=== PATIENT | male | born 1970 | race Two or more races ===

== ENCOUNTER 2025-01-30 00:53 | Inpatient (IN) | payer MEDICAID ==
[~2025-01-30] VITALS: Ht 170.2 cm; Wt 90.0 kg
--- NOTE | 2025-01-30 02:35 | Physician Documentation ---
History of Present Illness ~ Chief Complaint: Chest Pain Stated Complaint: CHEST PAIN Time Seen by MD: 02:28 Mode of Arrival: Ambulatory HPI Patient presents to the emergency room for evaluation of chest pain. Patient has history of previous stent placement. While at rest he was [place] truck stop and began having some central chest pain therefore came in to be evaluated. He continues to have some degree of chest discomfort. Medication Reconciliation Allergies: Coded Allergies: No Known Allergies (Unverified , 01/30/25) Review of Systems ROS All review of systems negative except as per HPI Physical Exam Vital Signs: Temperature: 97.8, Source: Oral, Heart Rate: 66, Respiratory Rate: 18, BP: 120/87, Pulse Oximetry: 98, Weight: 90.000 Oxygen Flow Rate: 0 Physical Exam General: Patient is awake, alert, oriented x4 in no acute distress and well appearing.~ Head: Normocephalic and atraumatic. Eyes: Conjunctival normal. EOMI. PERRL. ENT: Mucous membranes moist. Neck: Supple, trachea is midline. Chest: Clear to auscultation bilaterally without rales, rhonchi, or wheezes. There is no accessory muscle use or retractions. Cardiac: RRR without murmurs, gallops, or rubs. Abd: Soft, nondistended, nontender, with normoactive bowel sounds. No guarding, rebound, or rigidity. Progress Results/Orders Results/Orders Orders - ORTIZ QUINONEZ MD Hs Troponin I W Calculations (01/30/25 04:28) Hs Troponin I W Calculations (01/30/25 05:28) Chest,Single View (01/30/25 02:45) Pt Inr (01/30/25 03:50) PTT (01/30/25 03:50) Heparin 25,000 Unit/250ml Bag (Heparin 2 (01/30/25 03:50) Heparin 10,000 Unit/Ml 1ml (Heparin 10,0 (01/30/25 03:50) Cbc/Diff (01/31/25 03:00) Cbc/Diff (02/01/25 03:00) Cbc/Diff (02/02/25 03:00) Cbc/Diff (02/03/25 03:00) Cbc/Diff (02/04/25 03:00) Completed Orders - ORTIZ QUINONEZ MD Cbc/Diff (01/30/25 02:28) MG (01/30/25 02:28) Electrocardiogram (01/30/25 02:28) PBNP (01/30/25 02:28) BMP (01/30/25 02:28) Hs Troponin I W Calculations (01/30/25 02:28) Chest,Single View (01/30/25 02:45) Aspirin 325mg Tablet (Aspirin 325mg Tabl (01/30/25 03:50) Heparin 10,000 Unit/Ml 1ml (Heparin 10,0 (01/30/25 03:50) Vital Signs 01/30/25 01/30/25 01:00 01:17 Temp 97.8 Pulse 66 Resp 18 B/P (MAP) 120/87 Pulse Ox 98 O2 Flow Rate 0 Laboratory Tests Test 01/30/25 02:52 White Blood Count 13.4 H Red Blood Count 4.35 L Hemoglobin 13.4 L Hematocrit 39.8 L Mean Corpuscular Volume 91.6 Mean Corpuscular Hemoglobin 30.9 Mean Corpuscular Hemoglobin Concent 33.7 Red Cell Distribution Width 13.4 Platelet Count 208 Mean Platelet Volume 8.9 Neutrophils (%) (Auto) 78.8 H Lymphocytes (%) (Auto) 14.7 L Monocytes (%) (Auto) 4.9 Eosinophils (%) (Auto) 1.3 Basophils (%) (Auto) 0.3 Neutrophils # (Auto) 10.5 H Lymphocytes # (Auto) 2.0 Monocytes # (Auto) 0.7 Eosinophils # (Auto) 0.2 Basophils # (Auto) 0.0 CBC Comment Sodium Level 137 Potassium Level 3.8 Chloride Level 103 Carbon Dioxide Level 25.9 Anion Gap 8 Blood Urea Nitrogen 18 Creatinine 0.96 Estimated GFR/1.73 m2 81 BUN/Creatinine Ratio 18.8 Glucose Level 127 H Calcium Level 8.8 Magnesium Level 1.9 Troponin I High Sensitivity 117 *H Pro-B-Type Natriuretic Peptide 69 Albumin 3.8 Chemistry Comments EKG/XRAY/CT/US/VASC/MRI EKG : Additional Comment EKG interpreted by myself shows time of 0101, rate 63, sinus rhythm, normal axis, no ST changes Medical Decision Making Findings Patient presents to the emergency room with chest pain as per HPI. Differentials include but are not limited to ACS, aortic pathology, pulmonary embolism, musculoskeletal pain therefore emergent labs and imaging indicated. Labs concerning for elevated troponin. EKG shows no ST-elevation. No one-sided leg pain hypoxia or tachycardia and he had not feel he requires investigation into pulmonary embolism. No back pain and he had not suspect aortic pathology. Heparin initiated. Aspirin administered Departure Admitted to Inpatient Unit: yes, to hospitalist Impression: Primary Impression: NSTEMI (non-ST elevated myocardial infarction) Condition: Guarded Referrals: NO PRIMARY CARE PROVIDER (PCP) Critical Care Note Total Time (mins): 45 Critical Care Note The very real possibility of a deterioration of this patient's condition required the highest level of my preparedness for sudden, emergent intervention. I provided critical care services, which included medication orders, frequent reevaluations of the patient's condition and response to treatment, ordering and reviewing test results, and discussing the case with various consultants. Excludes time spent performing separately billable procedures. The critical care time associated with the care of the patient was 45 minutes not counting proced ures Signature Scribe Signature: No scribe Attestation: The note accurately reflects work and decisions made by me.Ortiz Qiunonez MD 01/30/25 03:57 ORTIZ QUINONEZ MD Jan 30, 2025 02:35
[2025-01-30 03:01] LABS: MEAN PLATELET VOLUME 8.9 FL (7.4-10.4); RED CELL DISTRIBUTION WIDTH 13.4 % (11.5-14.5)
--- NOTE | 2025-01-30 03:03 | RADIOLOGY REPORT ---
CHEST RADIOGRAPH Indication: cp Technique: 1 view Comparison: None FINDINGS: Lines and Tubes: None Lungs/Pleura: No focal consolidation, pleural effusion or pneumothorax. Cardiomediastinum: Upper normal heart size with post CABG change. Other: No acute osseous abnormality. Uncomplicated sternotomy wires. IMPRESSION: 1. Postsurgical chest without acute cardiopulmonary abnormality.
--- NOTE | 2025-01-30 03:20 | ELECTROCARDIOGRAPH REPORT ---
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
[2025-01-30 03:43] LABS: CREATININE 0.96 MG/DL (0.60-1.10); PRO BRAIN NATRIURETIC PEPTIDE 69 PG/ML (0-125); TOTAL CARBON DIOXIDE 25.9 MMOL/L (24-32); eCRCL 80 ML/MIN; eGFR 81 ML/MIN
[2025-01-30] MEDS ORDERED: heparin 10,000 units/1 ML INJ IV PRN (03:50)
[2025-01-30] MEDS: heparin 10,000 units/1 ML INJ IV ONE ×2 (04:18→04:24)
[2025-01-30] MEDS: heparin 25,000 UNIT/250ml bag 250 ML IV PRN (04:19)
[2025-01-30 04:29] LABS: APTT 30 SECONDS (22-32); INR 1.0 INR
[2025-01-30] MEDS ORDERED: magnesium sulf-water 4G/100mL 100 ML IV PRN (04:35)
[2025-01-30] MEDS: PERFLUTREN PROTEIN-A MICROSPHR (Optison) 0.22 MG/ML 3ML VIAL IV ONE (04:35)
[2025-01-30] MEDS ORDERED: magnesium sulf-water 2g/50mL 50 ML IV PRN (04:35)
[2025-01-30] MEDS ORDERED: potassium Cl 40MEQ/1/2NS 520ml 520 ML IV PRN (04:35)
[2025-01-30] MEDS ORDERED: ondansetron/PF 4mg/2ml inj IV PRN (04:35)
[2025-01-30] MEDS ORDERED: magnesium Cl slow-release 64mg tablet PO PRN (04:35)
[2025-01-30] MEDS ORDERED: potassium Cl 20 mEq SR tablet PO PRN ×2 (04:35)
--- NOTE | 2025-01-30 05:16 | HISTORY AND PHYSICAL-Residence ---
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 He presented with pressure-like chest pain, initially on the right side radiating to the left, of moderate intensity. The pain began after eating a sandwich while resting at the truck stop in [place], four hours prior to his arrival to ER. Initially, he attributed the pain to dyspepsia but later recognized it as a similar to his prior myocardial infarctions, prompting him to call 911. Pain was rated 5/10 in intensity. He denies associated shortness of breath, diaphoresis, nausea, or vomiting. The patient was traveling from [facility], en route to [place], [place], when symptoms developed. Home medications: Valsartan 80 mg daily, isosorbide 50 mg, Brilinta, carvedilol 90 mg daily, and carvedilol 12.5 mg daily. He reports good adherence, including compliance with dual antiplatelet therapy. He smoked half a pack per day for 20 years, quit 16 months ago. Consumes alcohol occasionally, no recreational drugs. Allergies: Coded Allergies: No Known Allergies (Unverified , 01/30/25) Past Medical History Past Medical History Hypertension, CAD status post CABG and stents Past Surgical History Surgical History Comment Noncontributory Past Social History Social History Comment Smoked half a pack per day for 20 years, quit 16 months ago. Drinks alcohol occasionally, no recreational drugs. He is from 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 ROS All Other Systems: Reviewed and Negative ROS As stated above in the HPI, otherwise all systems are reviewed and negative. Exam Vitals: Vital Signs Date Time Temp Pulse Resp B/P (MAP) Pulse Ox O2 Delivery O2 Flow Rate FiO2 01/30/25 01:17 01/30/25 01:00 97.8 66 18 98 0 General: Awake and Alert, no acute distress. HEENT: Conjunctiva pink, Sclera clear, Mucus Membranes moist. Neck: Supple without masses and tenderness. Resp: Unlabored. Lungs clear to auscultation bilaterally. Heart: Regular Rate and rhythm, normal S1 and S2 without murmur, rub or gallop. Abdomen: Soft and non tender no organomegaly Extremities: No cyanosis,clubbing or edema. Skin: Warm and Dry. Diagnostic Data Last Recorded Lab Results: 01/30/25 0252 01/30/25 0252 Diagnostic Data: Laboratory Tests Test 01/30/25 02:52 Prothrombin Time 10.5 SECONDS (9.0-12.0) INR International Normalized Ratio 1.0 INR Activated Partial Thromboplast Time 30 SECONDS (22-32) Coagulation Comments Advance Care Planning Advanced Care plannin - 30 Minutes Additional Plan Assessment and plan 1. Chest pain - concern for acute coronary syndrome/NSTEMI Chest pain resembling prior RI episodes EKGs; no acute ischemic changes ProBNP elevated Aspirin, atorvastatin, nitroglycerin, carvedilol initiated Heparin drip initiated cardiology consult in the morning Admitted to telemetry floor for monitoring Heart healthy diet Follow echo, hemoglobin A1c, and lipid panel 2. Coronary artery disease Status post CABG, status post stents x2 Patient had Brilinta yesterday, held for possible angiography for tomorrow Counseled on strict medication adherence 3. Hypertension Continue home medications; valsartan, carvedilol, isosorbide Monitor blood pressure closely Code status: Full code DVT prophylaxis: Heparin drip Michael Klein Internal Medicine Resident Addendum I personally reviewed the chart, labs and imaging and reviewed the patient with the team. I agree with the assessment and plan as documented by the resident. Patient was seen through remote audio-visual assessment through HIPAA compliance setup. Date of Service: Jan 30, 2025 Billing Provider: CARLITOS VAZQUEZ MD, SHAMS, RES Jan 30, 2025 05:16 CARLITOS VAZQUEZ MD Jan 30, 2025 06:30
[2025-01-30] MEDS: K and/or MAG REPLACEMENT MC SCH (08:00)
[2025-01-30] MEDS ORDERED: ASPI81TA52 PO (10:12)
[2025-01-30] MEDS ORDERED: VALS40TA2 PO (10:12)
[2025-01-30] MEDS ORDERED: CARV-50 PO (10:12)
[2025-01-30] MEDS ORDERED: TICA90TA2 PO (10:12)
[2025-01-30] MEDS ORDERED: ISOS30TA9 PO (10:12)
[2025-01-30 10:33] LABS: APTT 53 SECONDS (22-32)
[2025-01-30 11:00] VITALS: BP 98/58; PULSE 81; RESP 16; TEMP 97.5; O2SAT 95
[2025-01-30] MEDS: MESSAGE TO NURSING IV ONE ×3 (11:53→23:15)
[2025-01-30 15:00] VITALS: BP 94/58; PULSE 56; RESP 18; TEMP 97.9; O2SAT 96
[2025-01-30 18:00] VITALS: BP 100/65; PULSE 71; RESP 19; TEMP 97.5; O2SAT 98
--- NOTE | 2025-01-30 18:57 | CONSULTATION REPORT ---
History of Present Illness Providers to CC CC: INES DAUGHERTY MD ~ Reason for Admit\Admit Dx: Cardiology consultation History of Present Illness Patient has past medical history significant for coronary artery disease status post CABG about 16 months ago followed by PCI four days later and then one month later. Has been compliant with Brilinta and aspirin therapy. Presented secondary to episode of chest pain/pressure in the middle of his chest that was nonradiating with no associated shortness for breath, nausea, vomiting, dizziness or lightheadedness. States blood pressure was very high at the time. Pain improved with nitroglycerin. Found to have elevated troponins and cardiology consultation was requested. Allergies: Coded Allergies: No Known Allergies (Unverified , 01/30/25) Home Medications Home Medications Active Reported Aspirin EC (Aspirin) 81 Mg Tablet.dr 1 Tab PO DAILY 30 Days Brilinta (Ticagrelor) 90 Mg Tablet 1 Tab PO DAILY 30 Days Coreg* (Carvedilol) 12.5 Mg Tablet 1 Tablet PO BID Isordil* (Isosorbide Dinitrate) 30 Mg Tablet 2 Tab PO DAILY 30 Days Diovan (Valsartan) 40 Mg Tablet 2 Tab PO DAILY 30 Days Past Medical History Medical History Comment Coronary artery disease with history of CABG about 16 months ago followed by two separate PCIs on Brilinta and aspirin Hypertension Past Surgical History Surgical History Comment CABG as noted in HPI for vessels Past Social History Social History Comment Lives in [place] with his . 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 Quit smoking when he had his surgery. Did smoke about a half pack per day for 35 years. Rare alcohol. No recreational drugs. Physical Exam Last Vital Signs Recorded: RN Vital Signs have been reviewed: Yes, Temperature: 97.9, Source: Oral, Heart Rate: 56, Respiratory Rate: 18, BP: 94/58, Pulse Oximetry: 96, Weight: 90.000 Physical Exam General: Awake, alert, oriented. No apparent distress Neck: Supple. Normal range of motion. No JVD Respiratory: Lungs are clear to auscultation bilaterally. No respiratory distress. Chest: Normal shape and size. No accessory muscle use. Cardiovascular: Regular rate and rhythm. S1-S2. No murmur, gallop, rub. Gastrointestinal: Abdomen is soft. Nontender to palpation. Bowel sounds present. Extremities: No lower extremity edema, cyanosis or clubbing. Neurologic: Alert and oriented x4. Nonfocal Psychiatric: Normal mood and affect. Skin: Normal color. Warm and dry. Review of Systems ROS Review of systems negative except documented in HPI. Results EKG EKG No ECG available for review at time of consultation Echocardiogram Echocardiogram Echocardiogram with LVEF 70% no wall motion abnormalities Diagram Lab Result Diagram: 01/30/2525101/30/25251 Assessment/Plan Additional Plan Patient presented secondary to chest pain with history of CAD. The following is his problem list: NSTEMI Coronary artery disease history of CABG x4 followed by PCI x2 TTE with preserved EF and no wall motion abnormalities --continue heparin drip --continue home Brilinta and aspirin --statin to keep LDL less than 55 --continue home beta-george --recommend stress test. Ordered --recommend EKG. Ordered --continue isosorbide --nitroglycerin p.r.n. chest pain Hypertension --continue carvedilol and valsartan as per his home medications Case discussed with Dr. Ortega Daugherty who is in agreement with this plan. Supervising MD Supervising Physician: OMAR Serrano NP Jan 30, 2025 18:57
[2025-01-30] MEDS ORDERED: metoprolol tartrate 1mg/ml inj IV PRN (19:00)
[2025-01-30 20:00] VITALS: RESP 19; O2SAT 98
[2025-01-30 22:00] VITALS: BP 119/64; PULSE 57; RESP 20; TEMP 97.1; O2SAT 96
[2025-01-31] VITALS (23 sets, daily range): BP systolic 89–131; BP diastolic 49–78; PULSE 52–90; RESP 14–19; TEMP 97.1–97.9; O2SAT 96–100
[2025-01-31 06:08] LABS: MEAN PLATELET VOLUME 9.3 FL (7.4-10.4); RED CELL DISTRIBUTION WIDTH 13.4 % (11.5-14.5)
--- NOTE | 2025-01-31 06:15 | ELECTROCARDIOGRAPH REPORT ---
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 Chepe Daugherty Please click the below link to view image of tracing.
[2025-01-31 06:29] LABS: CHOL/HDL RATIO 4.7 (0.00-4.99); CREATININE 0.94 MG/DL (0.60-1.10); LDL CHOLESTEROL 100 MG/DL (50-100); TOTAL CARBON DIOXIDE 25.0 MMOL/L (24-32); eCRCL 82 ML/MIN; eGFR 83 ML/MIN
[2025-01-31] MEDS: MESSAGE TO NURSING IV ONE ×2 (06:39→13:05)
[2025-01-31] MEDS: regadenoson 0.4mg/5ml syringe IV PRN (09:14)
[2025-01-31] MEDS: aminophylline 250mg/10ml inj. IV PRN (09:42)
--- NOTE | 2025-01-31 10:34 | CARDIOLOGY REPORT ---
APPROVED REPORT EXAM: Comprehensive 2D, Doppler, and color-flow Echocardiogram. Patient Location: ER RM 13 Blood Pressure: 98/61 mmHg Heart Rate: 60 bpm Indications Chest Pain Troponin: 117 HX of Coronary Artery Disease HX of Stents x 2 (2013) HX of CABG x 4 (2013) FINANCIAL ANALYSIS ADVISOR: ( Patient can't remember) NO Previous ECHO 2D Dimensions LA Diam3.4 cm IVSd 0.7 (0.7-1.1cm) LVDd 4.8 cm PWd 1.0 (0.7-1.1cm) IVSs 1.1 (0.8-1.2cm) LVDs 2.8 (2.5-4.0cm) PWs 1.3 (0.8-1.2cm) LVOT Diameter 1.89 (1.8-2.4cm) LVEF(%) 72.0 (>50%) Ao Asc Diam.2.98 cm IVC 9.01 mmFS (%) 41.2 % SV 75.7 ml CO 4.6 L/min M-Mode Dimensions Left Atrium(MM) 3.21 (2.5-4.0cm) Aortic Root 2.78 (2.2-3.7cm) Aortic Cusp Exc 1.65 (1.5-2.0cm) MV EPSS 0.3 (<0.5cm) Aortic Valve AoV Peak Chay. 112.3 cm/s AoV VTI 24.8 cm AO Peak GR. 5.0 mmHg AO Mean GR. 3 mmHg LVOT VTI 21.15 cm LVOT Peak Chay. 98.1 cm/s KAROLYN(VTI)/BSA 2.40 cm2/m2 KAROLYN (VTI) 2.40 cm2 Mitral Valve MV E Velocity 70.2 cm/s MV Peak Gr. 2 mmHg MV DECEL TIME 228 ms MV A Velocity 63.0 cm/s MV PHT 60 ms E/A Ratio 1.1 MVA (PHT) 3.67 cm2 MV VMax76.0 cm/s TDI Lateral E' P. V10.32 cm/s E/Lateral E' 6.8 LEFT VENTRICLE Normal LV size and wall thickness. Overall systolic function is normal. LVEF is 70%. RIGHT VENTRICLE Right ventricle is mildly dilated with adequate function. ATRIA The left atrium size is normal. AORTIC VALVE Trileaflet AV appears mildly sclerotic without stenosis. No insufficiency. MITRAL VALVE Mild mitral annular calcification without stenosis. Trace regurgitation. TRICUSPID VALVE The tricuspid valve is normal in structure with trace regurgitation. PULMONIC VALVE The pulmonary valve is normal in structure with physiologic insufficiency. GREAT VESSELS The aortic root is normal in size. The ascending aorta is normal in size. The IVC is normal in size a nd collapses >50% with inspiration. PERICARDIUM Normal pericardium. No effusion. Other Information Study Quality: Adequate Conclusion Normal LV size and wall thickness. Overall systolic function is normal. LVEF is 70%. Right ventricle is mildly dilated with adequate function. The left atrium size is normal. Trileaflet AV appears mildly sclerotic without stenosis. No insufficiency. Mild mitral annular calcification without stenosis. Trace regurgitation. The tricuspid valve is normal in structure with trace regurgitation. The pulmonary valve is normal in structure with physiologic insufficiency. Normal pericardium. No effusion.
--- NOTE | 2025-01-31 11:15 | RADIOLOGY REPORT ---
Procedure: NM NM KAREN SCAN Exam Date: 01/31/2025 08:18 AM Reason for study/Clinical History: CP hx CABG Comparison Study: None Myocardial Perfusion Study with SPECT Technique: The patient received an intravenous injection of 8.4 mCi of technetium-99m sestamibi whil e at rest. After a short delay, SPECT tomographic images of the heart were obtained. The patient th en went to the stress lab where they received an intravenous infusion of 0.[address] andard protocol. 30.2 mCi of technetium-99m sestamibi was injected intravenously immediately after the start of the lexiscan infusion. Gated SPECT tomographic images of the heart were acquired and pr ocessed. 75 mg of aminophylline organ for reversal Findings: No reversible perfusion defect. End diastolic volume: 55 mL End systolic volume: 28 mL The left ventricular ejection fraction is 49 %. (normal greater than 50%) Septal, inferior wall hypokinesis Impression: No reversible defect. The left ventricular ejection fraction is 49 %. Hypokinesis of the septal, inferior hanna.
--- NOTE | 2025-01-31 14:31 | PROGRESS NOTE ---
Daily Progress Note Providers to CC ~ Antibiotic Timeout Antibiotic Ordered?: No Subjective Chief complaint little chest pressure over substernal area no shortness of breath no diaphoresis no nausea vomiting Review of systems negative for all 10 systems reviewed Objective Vital Signs Date Time Temp Pulse Resp B/P (MAP) Pulse Ox O2 Delivery O2 Flow Rate FiO2 01/31/25 11:30 56 16 111/66 (81) 98 01/31/25 11:15 Room Air 01/31/25 11:00 97.5 01/30/25 11:39 0.0 Result Diagram: 01/31/25 0508 01/31/25 0508 Patient is alert and oriented x3 no acute distress lying down comfortably speaking in full sentences CVS first and second heart sounds are regular rate rhythm no murmurs gallops or rubs Respiratory system is clear to auscultate bilaterally no rales rhonchi crackles or wheezing Abdomen is soft bowel sounds are positive nontender nondistended Extremities no clubbing cyanosis or edema Coagulation Studies Laboratory Tests Test 01/30/25 02:52 01/30/25 10:11 01/31/25 11:23 Prothrombin Time 10.5 SECONDS (9.0-12.0) INR International Normalized Ratio 1.0 INR Activated Partial Thromboplast Time 53 SECONDS (22-32) H APTT (Heparin Protocol) 52 SECONDS (45-60) Coagulation Comments Problem\Assessment\Plan Assessment and plan 1. Chest pain - concern for acute coronary syndrome/NSTEMI Chest pain resembling prior [place] episodes EKGs; no acute ischemic changes ProBNP elevated Aspirin, atorvastatin, nitroglycerin, carvedilol initiated Heparin drip continue times [address] Daugherty/Marilynn consult appreciated Admitted to telemetry floor for monitoring Heart healthy diet Follow echo, hemoglobin A1c, and lipid panel Lexiscan is negative 2. Coronary artery disease Status post CABG, status post stents x2 Patient had Brilinta yesterday, held for possible angiography for tomorrow Counseled on strict medication adherence 3. Hypertension Continue home medications; valsartan, carvedilol, isosorbide Monitor blood pressure closely Code status: Full code DVT prophylaxis: Heparin drip Patient's at the bedside answered all her questions to the best of my ability she agrees with the plan of care possible DC home in a.m. if stable the stress test results were told to the patient and the patient's help translate as well as the echo results Date of Service: Jan 31, 2025 Billing Provider: BALDEMAR OSULLIVAN MD Common Visit Codes: 45216-[id number] INP/OBS CARE(HIGH) BALDEMAR OSULLIVAN MD Jan 31, 2025 14:31
--- NOTE | 2025-01-31 15:29 | PROGRESS NOTE ---
Progress Note Cardiology Providers to CC ~ Subjective Subjective Patient was very worried that he was told he has right-sided heart failure and needs to restrict his fluid. He is concerned about his intermittent chest pain that is worse with breathing. Underwent a Lexiscan stress test that was negative for ischemia. Objective Result Diagram: 01/31/25 0508 01/31/25 0508 Objective General: Awake, alert, oriented. No apparent distress Neck: Supple. Normal range of motion. No JVD Respiratory: Lungs are clear to auscultation bilaterally. No respiratory distress. Chest: Normal shape and size. No accessory muscle use. Cardiovascular: Regular rate and rhythm. S1-S2. No murmur, gallop, rub. Gastrointestinal: Abdomen is soft. Nontender to palpation. Bowel sounds present. Extremities: No lower extremity edema, cyanosis or clubbing. Neurologic: Alert and oriented x4. Nonfocal Psychiatric: Normal mood and affect. Skin: Normal color. Warm and dry. Coagulation Studies Laboratory Tests Test 01/30/25 02:52 01/30/25 10:11 01/31/25 11:23 Prothrombin Time 10.5 SECONDS (9.0-12.0) INR International Normalized Ratio 1.0 INR Activated Partial Thromboplast Time 53 SECONDS (22-32) H APTT (Heparin Protocol) 52 SECONDS (45-60) Coagulation Comments Problem\Assessment\Plan Additional Plan Patient presented secondary to chest pain with history of CAD. The following is his problem list: NSTEMI Coronary artery disease history of CABG x4 followed by PCI x2 TTE with preserved EF and no wall motion abnormalities --continue home Brilinta and aspirin --statin to keep LDL less than 55 --continue home beta-george --continue isosorbide --nitroglycerin p.r.n. chest pain 01/31/25 stress test without reversible ischemia. TTE with preserved EF. RV mildly dilated with normal function. No valvular heart disease or other cardiomyopathy that would explain chest pain. Chest pain is worse with inspiration. Consider other etiologies of chest pain. Maybe secondary to spike in blood pressure as well. EKG performed yesterday was without acute ST changes. Hypertension --continue carvedilol and valsartan as per his home medications Case discussed with Dr. Ortega Daugherty who is in agreement with this plan. Recommend outpatient follow up with his primary teacher of the deaf/hard of hearing. Supervising Physician: OMAR Serrano NP Jan 31, 2025 15:29
[2025-01-31] MEDS ORDERED: LISI10TA27 PO (16:25)
[2025-01-31] MEDS ORDERED: ATOR20TA66 PO (16:25)
--- NOTE | 2025-01-31 16:28 | DISCHARGE SUMMARY ---
Discharge Summary Providers to CC ~ Discharge Summary Admission Diagnosis: NSTEMI Hospital Course DATE OF ADMISSION: 01/30/25 DATE OF DISCHARGE: 01/31/25 Discharge Diagnosis\Comment: nstemi,htn, hdl, cad Operations\Procedures: none Consultants: dr ashwin Daugherty Complications: none Condition on DC: Stable New Medications: Atorvastatin Calcium (Atorvastatin Calcium) 20 Mg Tablet 40 MG PO DAILY for 30 Days, #30 TAB Lisinopril (Lisinopril) 10 Mg Tablet 10 MG PO DAILY for 28 Days, #30 TAB Continued Medications: Aspirin (Aspirin EC) 81 Mg Tablet.dr 1 TAB PO DAILY for 30 Days, #30 TAB Carvedilol* (Coreg*) 12.5 Mg Tablet 1 TABLET PO BID, TABLET Isosorbide Dinitrate* (Isordil*) 30 Mg Tablet 2 TAB PO DAILY for chest pain for 30 Days, #30 TAB Ticagrelor (Brilinta) 90 Mg Tablet 1 TAB PO DAILY for 30 Days, #60 TAB 0 Refills Valsartan (Diovan) 40 Mg Tablet 2 TAB PO DAILY for 30 Days, #30 TAB 0 Refills Discharge Summary: History of Present Illness Patient is a 54-year-old Farsi speaking male, 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 He presented with pressure-like chest pain, initially on the right side radiating to the left, of moderate intensity. The pain began after eating a sandwich while resting at the truck stop in [place], four hours prior to his arrival to ER. Initially, he attributed the pain to dyspepsia but later recognized it as a similar to his prior myocardial infarctions, prompting him to call 911. Pain was rated 5/10 in intensity. He denies associated shortness of breath, diaphoresis, nausea, or vomiting. The patient was traveling from [facility], en route to [place], [place], when symptoms developed. Home medications: Valsartan 80 mg daily, isosorbide 50 mg, Brilinta, carvedilol 90 mg daily, and carvedilol 12.5 mg daily. He reports good adherence, including compliance with dual antiplatelet therapy. He smoked half a pack per day for 20 years, quit 16 months ago. Consumes alcohol occasionally, no recreational d rugs. Patient is alert and oriented x3 no acute distress lying down comfortably speaking in full sentences CVS first and second heart sounds are regular rate rhythm no murmurs gallops or rubs Respiratory system is clear to auscultate bilaterally no rales rhonchi crackles or wheezing Abdomen is soft bowel sounds are positive nontender nondistended Extremities no clubbing cyanosis or edema Hospital course patient is a pleasant 54-year-old that was admitted secondary to chest pain was noted to have elevated troponins patient is started on IV heparin times 48 hours. We consulted Cardiology they suggested we do a stress test. This was done Lexiscan was negative. Patient's vital signs are stable he is being discharged home with advice for close follow up with PCP and apprentice funeral director. Patient is advised to be compliant with his medications. Patient is chest pain-free and vital signs are stable at the time of discharge. *Problems/Diagnosis: (1) NSTEMI (non-ST elevated myocardial infarction) Status: Acute Total Time Spent on D/C: > 30 Minutes Date of Service: Feb 01, 2025 Billing Provider: BALDEMAR OSULLIVAN MD Common Visit Codes: 51056-FXY/OBS DISCH DAY >30min BALDEMAR OSULLIVAN MD Jan 31, 2025 16:28
[2025-01-31] MEDS ORDERED: ISOS60TA71 PO (16:52)
[2025-02-01 02:00] VITALS: BP 95/56; PULSE 61; RESP 16; TEMP 97.2; O2SAT 98
[2025-02-01 06:00] VITALS: BP 109/64; PULSE 63; RESP 16; TEMP 97.4; O2SAT 100
[2025-02-01 06:24] LABS: MEAN PLATELET VOLUME 8.9 FL (7.4-10.4); RED CELL DISTRIBUTION WIDTH 13.5 % (11.5-14.5)
[2025-02-01 06:33] LABS: CREATININE 0.85 MG/DL (0.60-1.10); TOTAL CARBON DIOXIDE 25.5 MMOL/L (24-32); eCRCL 91 ML/MIN; eGFR > 90 ML/MIN
[2025-02-01 08:00] VITALS: RESP 16; O2SAT 100
[2025-02-01 08:31] VITALS: BP_SYST 109; PULSE 63
== END 2025-02-01 11:12 | disposition home or self-care (01) | DRG 190 ==
LOC: ER 00:54 → ED HOLD 04:38 → PCU 3S 10:53
PROVIDERS: ADMIT Internal Medicine Sleep Medicine; ATTEND Internal Medicine
PROC: 4A02XM4 Measurement of Cardiac Total Activity, External Approach (ICD-10-PCS; principal; 2025-01-31)
PROC: 3E033HZ Introduction of Radioactive Substance into Peripheral Vein, Percutaneous Approach (ICD-10-PCS; 2025-01-31)
DX: I21.4 Non-ST elevation (NSTEMI) myocardial infarction (principal); Z95.1 Presence of aortocoronary bypass graft; I10 Essential (primary) hypertension; I25.10 Atherosclerotic heart disease of native coronary artery without angina pectoris; I25.2 Old myocardial infarction; Z95.5 Presence of coronary angioplasty implant and graft; Z87.891 Personal history of nicotine dependence; Z79.82 Long term (current) use of aspirin; Z79.899 Other long term (current) drug therapy
CPT/HCPCS: 36415; 71045; 78452; 80048; 80061; 83036; 83735; 83880; 84484; 85025; 85610; 85730; 87081; 93005; 93017; 93306; 96374; 99291; A9500; G0378; J0280; J1644; J2470; J2785